=== PATIENT | male | born 1995 | race Caucasian/White ===

== ENCOUNTER 2019-01-12 00:16 | Emergency (ER) | payer OTHER ==
[2019-01-12] MEDS: HYDROCODONE/APAP (5/325) TAB PO (04:53)
[2019-01-12] MEDS: KETOROLAC 30 MG INJ IM (04:53)
== END 2019-01-12 07:04 | disposition home or self-care (01) ==
LOC: FTE 07:04
DX: M25.571 Pain in right ankle and joints of right foot (principal)
CPT/HCPCS: 73610; 73610-RT; 96372; 99284-25

== ENCOUNTER 2019-01-17 12:34 | Emergency (ER) | payer OTHER | END 2019-01-17 13:17 | disposition home or self-care (01) | LOC: E/R 12:34 | DX: Z48.02 Encounter for removal of sutures (principal) | CPT/HCPCS: 99281; Z7502 ==